=== PATIENT | male | born 1950 | race Caucasian/White ===

== ENCOUNTER 2021-11-01 09:36 | Outpatient (RCR) | payer MEDICARE, MEDICAID, SELFPAY | END 2021-11-01 23:59 | disposition home or self-care (01) | LOC: ANHAUDIO 09:36 | PROVIDERS: PCP Family Medicine; Visit Provider Family Medicine | DX: Z46.1 Encounter for fitting and adjustment of hearing aid (principal) | CPT/HCPCS: 99199 ==